=== PATIENT | female | born 1990 | race Caucasian/White ===

== ENCOUNTER 2018-07-03 14:21 | Outpatient (CLI) | payer OTHER ==
--- NOTE | 2018-07-03 16:22 | ULT ---
OB ULTRASOUND: Date: 07/03/18 INDICATINO: Evaluation of size and dates, anatomy. FINDINGS: There is a live intrauterine gestation with cardiac activity documented at 141 beats/minute. Th e imaged fetus is demonstrated in a breech lie. Placenta is primarily located in the anterior locatio n. There is limited evaluation of anatomy due to maternal body habitus. The cranial and cardiac regions of the fetus are not reliably assessed. Gastric bubble, kidneys, cord insertion site, and three vessel cord are grossly unremarkable as demonstrated. On the basis of sonographic imaging, fetus corresponds to an approximate 20 weeks/3 days gestation, p lacing estimated date of delivery by ultrasound at 11/17/18. Estimated weight is 358 gm, placin g fetus at 27th percentile by Hadlock criteria. Biparietal diameter corresponds to 20 weeks/3 days, h ead circumference 20 weeks/1 day, abdominal circumference 20 weeks/6 days, and femoral length 20 week s/1 day. SUSANNAH is measured at 15.8 cm. IMPRESSION: Live intrauterine gestation. There is limited evaluation of anatomy due to overlying body wall of soft tissues. As necessary, continued imaging follow-up may be obtained. POS: MOOSE
== END 2018-07-03 14:22 | disposition home or self-care (01) ==
LOC: SCSULT 14:21
PROVIDERS: ATTEND Family Medicine
DX: O09.92 Supervision of high risk pregnancy, unspecified, second trimester (principal); Z3A.20 20 weeks gestation of pregnancy
CPT/HCPCS: 76805

== ENCOUNTER 2018-11-10 04:52 | Inpatient (IN) | payer OTHER ==
[2018-11-10] MEDS ORDERED: Bicitra 30 ML UDCUP PO SCH (05:02)
[2018-11-10] MEDS ORDERED: Promethazine HCl 25 MG/ML VIAL IM PRN ×3 (05:02→13:08)
[2018-11-10] MEDS ORDERED: CEFAZOLIN 3 GM in Premix Bag 1 BAG IVPB SCH (05:02)
[2018-11-10] MEDS ORDERED: Ondansetron PF 4 MG/2 ML Vial IVP PRN ×3 (05:02→13:08)
[2018-11-10] MEDS: Lactated Ringer's 1,000 ML IV SCH ×2 (05:40→06:57)
[2018-11-10 06:02] LABS: Hemoglobin 12.4 g/dL (12.0-16.0); Mean Corpuscular HGB CONC 32.9 g/dL (32.0-36.0); Mean Corpuscular Hemoglobin 30.3 pg (27.0-31.0); Mean Platelet Volume 6.5 fL (7.4-10.4); Platelet Count 279 thou/uL (130-400); RBC Distribution Width 12.1 % (11.5-14.5); Red Blood Cell (RBC) Count 4.09 mill/uL (4.20-5.40); White Blood Cell (WBC) Count 9.1 thou/uL (4.8-10.8)
[2018-11-10 06:07] VITALS: BMI 58.2
[2018-11-10] MEDS ORDERED: CEFAZOLIN 3 GM in Sodium Chloride 0.9% 100 ML IVPB SCH (06:15)
[2018-11-10] MEDS ORDERED: Fentanyl 100 MCG/2 ML VIAL ONE (06:49)
[2018-11-10] MEDS ORDERED: Oxytocin 10 UNITS/ML VIAL ONE ×2 (06:51→08:47)
[2018-11-10] MEDS ORDERED: MORPHINE 5 MG/10 ML PF VIAL ONE (06:51)
[2018-11-10 06:55] LABS: HBSAg Index 0.28 S/CO (0-0.99); Hep B Surf Ag Non-Reactive S/CO (NonReactive); Syphilis Antibody Nonreactive (Nonreactive); Syphilis Antibody Index 0.02 S/CO (<1.00 Non-Reactive)
[2018-11-10] MEDS ORDERED: CEFAZOLIN 1 GM VIAL IVPB SCH (07:45)
[2018-11-10] MEDS ORDERED: PHENYLEPHRINE-NS 100 MCG/ML 10 ML SYRINGE ONE ×2 (08:04→11:40)
[2018-11-10] MEDS ORDERED: Methylergonovine 0.2 MG/ML VIAL ONE (08:17)
[2018-11-10] MEDS ORDERED: HYDROmorphone 2 MG/ML VIAL SLOW IVP PRN ×3 (08:23→12:00)
[2018-11-10] MEDS ORDERED: L&D-Morphine 4 MG/ML VIAL SLOW IVP PRN (08:23)
[2018-11-10] MEDS ORDERED: Naloxone HCl 0.4 mg/ml Vial IVP PRN ×2 (08:23)
[2018-11-10] MEDS ORDERED: Promethazine HCl 25 MG SUPP PR PRN (08:23)
[2018-11-10] MEDS ORDERED: Naloxone HCl 0.4 mg/ml Vial IV PRN (08:23)
[2018-11-10] MEDS ORDERED: diphenhydrAMINE 50 MG/ML VIAL IVP PRN (08:23)
[2018-11-10] MEDS ORDERED: Ondansetron HCl/PF 4 MG/2 ML Vial IVP PRN (08:23)
[2018-11-10] MEDS ORDERED: Communication Order-Pharmacy FS SCH (08:30)
[2018-11-10] MEDS ORDERED: Ketorolac Tromethamine 30 MG/ML VIAL IVP SCH (08:30)
[2018-11-10] MEDS ORDERED: Methylergonovine 0.2 MG/ML VIAL IM SCH (09:45)
[2018-11-10] MEDS ORDERED: Meperidine HCl/PF 25 MG/ML VIAL ONE ×2 (10:04→10:16)
[2018-11-10] MEDS: Meperidine HCl/PF 25 MG/ML VIAL SLOW IVP PRN ×2 (10:04→10:16)
[2018-11-10] MEDS ORDERED: Morphine 4 MG/ML VIAL ONE (10:39)
[2018-11-10] MEDS ORDERED: Metoclopramide HCl 10 MG/2 ML VIAL ONE (11:40)
[2018-11-10] MEDS ORDERED: Ondansetron PF 4 MG/2 ML Vial ONE (11:40)
[2018-11-10] MEDS ORDERED: ePHEDrine 50 MG/ML VIAL ONE (11:40)
[2018-11-10] MEDS ORDERED: Ketorolac Tromethamine 30 MG/ML VIAL ONE (12:10)
[2018-11-10] MEDS: Ketorolac Tromethamine 30 MG/ML VIAL IVP PRN ×2 (12:11→18:33)
[2018-11-10] MEDS ORDERED: diphenhydrAMINE 25 MG CAP PO PRN (13:08)
[2018-11-10] MEDS ORDERED: Simethicone Chewable 80 MG TAB PO PRN (13:08)
[2018-11-10] MEDS ORDERED: NS / Oxytocin 40 units/1000ml 1,000 ML IV SCH (13:08)
[2018-11-10] MEDS ORDERED: Bisacodyl 10 MG SUPP PR PRN (13:08)
[2018-11-10] MEDS ORDERED: Lanolin Ointment 7 GM TUBE TOP PRN (13:08)
[2018-11-10] MEDS ORDERED: Lactated Ringer's 1,000 ML IV SCH (13:08)
[2018-11-10] MEDS ORDERED: Ferrous Sulfate 325 MG TAB PO SCH (13:30)
[2018-11-10] MEDS ORDERED: Prenatal Vitamin 1 TAB PO SCH (13:30)
[2018-11-10] MEDS ORDERED: Docusate Calcium (SURFAK) 240 MG CAP PO SCH (13:30)
[2018-11-10] MEDS: Ferrous Sulfate 325 MG TAB PO SCH (17:14)
--- NOTE | 2018-11-10 17:26 | OP ---
DATE OF PROCEDURE: 11/10/2018 [employer] SURGEON: Rupa Cota MD PROCEDURE PERFORMED: Repeat low transverse section. PREOPERATIVE DIAGNOSES: 1. Term intrauterine . 2. Previous section. 3. Morbid obesity. POSTOPERATIVE DIAGNOSES: 1. Term intrauterine . 2. Previous section. 3. Morbid obesity. ANESTHESIA: Spinal. INDICATIONS: The patient is a 28-year-old, G2, P1-0-0-1 at 39.3 weeks gestation, who presents for repeat scheduled . DESCRIPTION OF PROCEDURE: After risks, benefits, and alternatives were explained to the patient, she gave an informed consent. Preoperative antibiotics include cefazolin 2 g IV. The patient was taken to the operating room and spinal anesthesia was initiated. She was placed in a supine position with a left tilt and prepped and draped in the usual sterile fashion. A Pfannenstiel incision was made with a scalpel and carried down to the level of the fascia, which was sharply nicked. The fascial cut was extended bilaterally with Sanchez scissors. Of note, significant adhesions were noted on the anterior rectus to the fascia. The inferior and superior edges of the cut fascial edges were elevated with Marvin clamps and underlying rectus muscles were sharply and bluntly dissected free. The recti were divided digitally and retracted medially. The peritoneum was entered bluntly and retracted manually. Adhesions were again noted in the midline of the rectus. Bladder blade was placed. Bladder flap was created with Metzenbaum scissors. A large uterine window was noted and the uterus was entered with Allis clamp. Clear fluid was seen. The hysterotomy was extended manually. The was noted to be vertex and easily delivered by fundal pressure. Mouth and nares were bulb suctioned. Cord clamped and cut and grossly normal female was handed to awaiting nurse. Cord blood was obtained. Placenta was manually extracted, found to be intact with three-vessel cord and discarded. The uterus was externalized and the endometrium was curetted with a dry lap. Bladder blade was replaced and the uterus was closed with a running locking 0 Vicryl suture followed by two interrupted 0 Vicryl stitches along the left corner as well as the midline. Following this, hemostasis was noted. The abdomen was irrigated and suctioned free of clots. Seprafilm was applied to the anterior surface of the uterus. Then, adhesions were noted posteriorly. The uterus was internalized and the hysterotomy was again noted to be hemostatic. Of note, the tubes and ovaries were inspected and appeared normal. The rectus was approximated, where it was bleeding with one 3-0 Vicryl [id number] suture. The fascia was closed with running nonlocking 0 PDS suture x2. Subcutaneous tissue was irrigated and all bleeders were cauterized. The subcutaneous fat was approximated with three interrupted 3-0 Vicryl sutures. The skin was approximated with sharlene and a Prevena wound VAC was placed. All counts were correct. The patient tolerated the procedure well, was taken to the recovery room in stable condition. QBL: 822 mL. COMPLICATIONS: Dense adhesions noted in the rectus layer predominantly and then adhesion noted posterior to the uterus. There was also significant uterine window and the patient was counseled against a short interpregnancy interval as well as with recommendation to not have a trial of labor in any future . SPECIMENS: Cord blood sent to lab for blood type. FINDINGS: Grossly normal female infant with Apgars of 8 and 9. Grossly normal placenta with three-vessel cord, discarded. DRAINS: Roy to gravity draining clear urine. Job ID: [id number]
[2018-11-10] MEDS ORDERED: Meperidine HCl/PF 25 MG/ML VIAL IM PRN (20:30)
[2018-11-10] MEDS: Docusate Calcium (SURFAK) 240 MG CAP PO SCH (21:16)
[2018-11-11] MEDS: Ketorolac Tromethamine 30 MG/ML VIAL IVP PRN (01:07)
[2018-11-11 06:15] LABS: Hemoglobin 10.1 g/dL (12.0-16.0); Mean Corpuscular Hemoglobin 31.7 pg (27.0-31.0); Mean Corpuscular Volume 93.3 fL (78.0-98.0); Platelet Count 204 thou/uL (130-400); RBC Distribution Width 12.1 % (11.5-14.5); Red Blood Cell (RBC) Count 3.19 mill/uL (4.20-5.40); White Blood Cell (WBC) Count 7.9 thou/uL (4.8-10.8)
[2018-11-11] MEDS: Ferrous Sulfate 325 MG TAB PO SCH ×2 (07:27→14:58)
[2018-11-11] MEDS: HYDROcodone/Acetaminophen 5/325 mg Tablet PO PRN ×4 (07:31→21:18)
[2018-11-11] MEDS: Docusate Calcium (SURFAK) 240 MG CAP PO SCH ×2 (08:37→21:20)
[2018-11-11] MEDS: Prenatal Vitamin 1 TAB PO SCH (08:37)
[2018-11-11] MEDS: Ibuprofen 800 MG TAB PO SCH ×2 (12:44→21:20)
[2018-11-12] MEDS: HYDROcodone/Acetaminophen 5/325 mg Tablet PO PRN ×5 (02:09→20:50)
[2018-11-12] MEDS: Ibuprofen 800 MG TAB PO SCH ×3 (05:25→20:50)
[2018-11-12] MEDS: Docusate Calcium (SURFAK) 240 MG CAP PO SCH ×2 (07:42→20:50)
[2018-11-12] MEDS: Prenatal Vitamin 1 TAB PO SCH (07:42)
[2018-11-12] MEDS: Ferrous Sulfate 325 MG TAB PO SCH ×2 (07:47→16:41)
[2018-11-13] MEDS: Ibuprofen 800 MG TAB PO SCH ×2 (05:33→14:54)
[2018-11-13] MEDS: Ferrous Sulfate 325 MG TAB PO SCH (07:38)
[2018-11-13] MEDS: Prenatal Vitamin 1 TAB PO SCH (07:59)
[2018-11-13] MEDS: Docusate Calcium (SURFAK) 240 MG CAP PO SCH (07:59)
[2018-11-13] MEDS: HYDROcodone/Acetaminophen 5/325 mg Tablet PO PRN ×2 (07:59→14:54)
[2018-11-13 08:01] VITALS: BP 126/80; TEMP 98
== END 2018-11-13 17:56 | disposition home or self-care (01) | DRG 788 ==
LOC: L&D 04:52 → 3SW 13:08
PROVIDERS: ADMIT Family Medicine; ATTEND Family Medicine
PROC: 10D00Z1 Extraction of Products of Conception, Low, Open Approach (ICD-10-PCS; principal; 2018-11-10)
DX: O34.211 Maternal care for low transverse scar from previous cesarean delivery (principal); O99.214 Obesity complicating childbirth; E66.01 Morbid (severe) obesity due to excess calories; Z3A.39 39 weeks gestation of pregnancy; Z37.0 Single live birth
CPT/HCPCS: 36415; 51702; 85027; 86780; 86850; 86900; 86901; 87340; J0690; J1170; J1885; J2175; J2210; J2270; J2405; J2590; J2765; J3010; J3490